=== PATIENT | male | born 1945 | race Caucasian/White ===

== ENCOUNTER → 2021-12-09 | Day surgery (SDC) | payer OTHER ==
[~2021-12-09] MED LIST: 24HR ALLERGY REL5 MG PO; CENTRUM COMPLE1 EACH PO; COQ-1030 MG PO; COZAAR100 MG PO; FLOMAX0.4 MG PO; HYDRALAZINE HCL25 MG PO; IMDUR PO; LEVEMIR FL100 UNIT/1 SC; LOSARTAN POTASS25 MG PO; METOPROLOL TART25 MG PO; NEURONTIN300 MG PO; NORCO PO; NOVOLOG MI100 UNIT/1 SC; PLAVIX75 MG PO; PRILOSEC OTC20 MG PO; RANEXA1000 MG PO; ST. JOSEPH ASPI81 M1 PO; XANAX0.5 MG PO
== END | disposition home or self-care (01) ==
LOC: OR 07:58
DX: M47.26 Other spondylosis with radiculopathy, lumbar region (principal); M48.062 Spinal stenosis, lumbar region with neurogenic claudication; M47.22 Other spondylosis with radiculopathy, cervical region; M48.02 Spinal stenosis, cervical region; M50.10 Cervical disc disorder with radiculopathy, unspecified cervical region; M51.16 Intervertebral disc disorders with radiculopathy, lumbar region; Z20.822 Contact with and (suspected) exposure to COVID-19; Z79.02 Long term (current) use of antithrombotics/antiplatelets; Z79.82 Long term (current) use of aspirin; Z79.891 Long term (current) use of opiate analgesic; Z79.899 Other long term (current) drug therapy
CPT/HCPCS: 76000; 82962; J1040; Q9967